=== PATIENT | female | born 1945 | race Caucasian/White ===

== ENCOUNTER 2019-06-13 10:56 | Outpatient (CLI) | payer MEDICARE, SELFPAY ==
--- NOTE | ~2019-06-13 | XR_ITS ---
XR chest 2V DATE: 06/13/2019 11:29 INDICATION: Left numbness. Left neck pain. TECHNIQUE: 2 views COMPARISON: 08/06/2015 2 view chest FINDINGS: There is bilateral hyperinflation. No pulmonary infiltrate or consolidation, pleural effusi on or pulmonary vascular congestion or pneumothorax. Normal heart size. No hilar or mediastinal enlargement. IMPRESSION: Bilateral hyperinflation; no active cardiopulmonary disease Reviewed, dictated and finalized at location A.
--- NOTE | ~2019-06-13 | XR_ITS ---
XR_CERV2-3V_CR DATE: 06/13/2019 11:29 INDICATION: Neck pain, left arm numbness. TECHNIQUE: AP, open-mouth, odontoid and lateral views COMPARISON: None FINDINGS: C1 and C2 are normally aligned and the odontoid process is intact. No fracture or dislocation or locked facet or prevertebral soft tissue swelling. There is moderately severe degenerative disease at C4-5 and moderately prominent degenerative disease at C5-6 and C6-7. There is uncovertebral joint spurring in the mid and lower cervical spine and evidence of degenerativ e change at the apophyseal joints. IMPRESSION: Cervical spondylosis Reviewed, dictated and finalized at Location A. Reviewed, dictated and finalized at location A. IMPRESSION: Cervical spondylosis
[2019-06-13 11:11] LABS: Hematocrit 42.3 % (35.0-42.0); Hemoglobin 14.6 g/dL (11.7-13.8); Mean Corpuscular HGB Conc 34.5 g/dL (32.0-36.0); Mean Corpuscular Hemoglobin 32.6 pg (27.0-31.0); Mean Corpuscular Volume 94.4 fL (78.0-102.0); Mean Platelet Volume 10.4 fl (9.2-11.8); Platelet Count Result 370 K/mm3 (150-420); Red Blood Count 4.48 M/mm3 (4.20-5.40); Red Cell Distribution Width 11.8 % (11.6-14.4); White Blood Count 6.3 K/mm3 (4.8-10.8)
[2019-06-13 11:12] LABS: Add Urine Microscopic? NO; Appearance Urine Clear (Clear); Bilirubin Urine Negative (Negative); Blood Urine Negative (Negative); Color Urine Yellow (Yellow); Glucose Urine UA Negative (Negative); Ketones Urine Negative (Negative); Leukocyte Esterase Ur Negative (Negative); Nitrate Urine Negative (Negative); Protein Urine Negative (Negative); Urobilinogen Urine 0.2 mg/dL (0.2-1.0); pH Urine 5.5 (5.0-8.0)
[2019-06-13 11:46] LABS: Alanine Aminotransferase 41 U/L (14-59); Alkaline Phosphatase 60 U/L (46-116); Anion Gap 10.7 mmol/L (7-16); Aspartate Amino Transferase 31 U/L (15-37); Bilirubin,Total 0.5 mg/dL (0.00-1.00); Blood Urea Nitrogen 14 mg/dL (7-18); Calcium 9.1 mg/dL (8.5-10.1); Carbon Dioxide 30 mmol/L (21-32); Chloride 102 mmol/L (98-108); Cholesterol 215 mg/dL (0-200); Estimated Glomerular Filt Rate > 60; Glucose 97 mg/dL (70-99); HDL Direct 85 mg/dL (40-60); LDL Cholesterol Calculated 116 mg/dL (<130); Osmolality Calculated 288 mOsm/kg (285-295); Potassium 3.7 mmol/L (3.5-5.1); Sodium 139 mmol/L (136-145); Thyroid Stimulating Hormone 1.57 uIU/mL (0.36-3.74); Total Protein 6.5 g/dL (6.4-8.2); Triglycerides 72 mg/dL (0-150)
[2019-06-13 12:41] LABS: Immature Granulocyte Percent A 0.5 % (0.0-0.0)
[2019-06-13 12:42] LABS: Neutrophils Percent Auto 60.2 % (50.0-70.0)
[2019-06-13 12:43] LABS: Basophils Absolute Auto 1.06 K/mm3 (0.00-0.10); Eosinophils Absolute Auto 0.12 K/mm3 (0.02-0.50); Eosinophils Percent Auto 1.9 % (1.0-6.0); Lymphocytes Absolute Auto 1.71 K/mm3 (1.10-4.50); Lymphocytes Percent Auto 27.3 % (18.0-42.0); Monocytes Absolute Auto 0.57 K/mm3 (0.10-0.90); Monocytes Percent Auto 9.1 % (2.0-11.0); Neutrophils Absolute Auto 3.8 K/mm3 (1.7-7.2); Platelet Estimate Adequate (Adequate)
== END 2019-06-13 10:57 | disposition home or self-care (01) ==
LOC: CHSLAB 10:58
PROVIDERS: PCP Internal Medicine; Visit Provider Internal Medicine
DX: E78.5 Hyperlipidemia, unspecified (principal); I10 Essential (primary) hypertension; R20.0 Anesthesia of skin; R07.9 Chest pain, unspecified
CPT/HCPCS: 36415; 71046; 72040; 80053; 80061; 81003; 84443; 85025

== ENCOUNTER 2019-10-28 01:04 | Emergency (ER) | payer MEDICARE, SELFPAY ==
--- NOTE | 2019-10-28 01:19 | ED.FEMALEGU ---
HPI - Female Genitourinary General Chief complaint: Unspecified Stated complaint: UTI Time Seen by Provider: 10/28/19 01:19 Source: patient Mode of arrival: ambulatory Limitations: no limitations History of Present Illness HPI Narrative: 74-year-old woman comes in today complaining of increasingly painful urination over the last 3 days, some mild low abdominal pain, mild left flank pain, and urgency and frequency. She states that she has had no fever, nausea, vomiting and no blood in her urine. She states she has had symptoms like this in the past and was treated for UTI. She denies vaginal discharge. MD elicited complaint: dysuria Onset (ago): day(s) (3) Location of symptoms: urethra Severity: moderate Quality of pain: sharp and burning Consistency: progressively worsening Vaginal discharge: none Vaginal bleeding: none Urinary symptoms: Dysuria, Urgency, Frequency and Flank Pain ( Mild left) Exacerbating factors: urination Relieving factors: none Associated symptoms: abdominal pain Treatment prior to arrival: none Patient : No Related Data Home Medications Medication Instructions Recorded Confirmed gentamicin-prednisolone [Pred-G] See Rx Instructions .ROUTE .COMPLEX 10/28/19 10/28/19 lisinopril-hydrochlorothiazide See Rx Instructions .ROUTE .COMPLEX 10/28/19 10/28/19 [Zestoretic] lorazepam [Ativan] See Rx Instructions .ROUTE .COMPLEX 10/28/19 10/28/19 montelukast [Singulair] See Rx Instructions .ROUTE .COMPLEX 10/28/19 10/28/19 pravastatin See Rx Instructions .ROUTE .COMPLEX 10/28/19 10/28/19 raloxifene [Evista] See Rx Instructions .ROUTE .COMPLEX 10/28/19 10/28/19 Allergies Allergy/AdvReac Type Severity Reaction Status Date / Time Sulfa (Sulfonamide Allergy Intermediate Blister Verified 10/28/19 01:25 Antibiotics) morphine AdvReac Intermediate felt like Uncoded 10/28/19 01:26 bugs crawling on her Review of Systems Constitutional: Constitutional: Reports chills and Denies fatigue Eyes: Eyes: Denies change in vision and Denies photophobia ENT: Denies dysphagia, Denies nasal congestion and Denies sore throat Cardiovascular: Cardiovascular: Denies chest pain Respiratory: Respiratory: Denies cough and Denies dyspnea Gastrointestinal: Gastrointestinal: Reports abdominal pain, Denies nausea and Denies vomiting Genitourinary: Genitourinary: Denies hematuria, Reports nocturia, Reports dysuria, Reports flank pain and Denies urinary incontinence Musculoskeletal: Musculoskeletal: Denies back pain, Denies arthralgias and Denies joint swelling Integumentary/Breasts: Skin/Breast: Denies pruritus, Denies erythema and Denies rash Neurologic: Denies vertigo, Denies dizziness and Denies syncope Hematologic/Lymphatic: Hematologic/Lymphatic: Denies easy bleeding and Denies easy bruising Allergic/Immunologic: Allergic/Immunologic: Denies lip swelling and Denies wheezing PMFSH Past Medical History Medical History Dyslipidemia Hypertension Insomnia Osteoporosis Surgical History Surgical History H/O: hysterectomy Social History Social History Smoking status: Never smoker Alcohol intake: never Substance use: never Living arrangements: with family Gender identity (if verbalized by the patient): Female Sexual Orientation (if Verbalized by the Patient): Straight or Heterosexual Exam Const: General: healthy appearing, no acute distress and alert; No ill appearing Orientation/consciousness: patient oriented x3 Limitations: no limitations HENMT: Mouth: Yes moist mucous membranes Throat: posterior oropharynx normal and uvula midline Eyes: Conjunctivae: conjunctivae normal Pupils: Equal, round and reactive pupils present EOM: EOMs intact bilaterally Resp: Effort & Inspection: normal respiratory effort
[2019-10-28 01:22] VITALS: BP 120/60; PULSE 76; RESP 16; TEMP 37
[2019-10-28 01:25] LABS: Add Urine Microscopic? YES; Appearance Urine Sl Cloudy (Clear); Bilirubin Urine Negative (Negative); Blood Urine 3+ (Negative); Color Urine Straw (Yellow); Glucose Urine UA Negative (Negative); Ketones Urine Negative (Negative); Leukocyte Esterase Ur 2+ (Negative); Nitrate Urine Negative (Negative); Protein Urine 1+ (Negative); Urobilinogen Urine 0.2 mg/dL (0.2-1.0)
[2019-10-28 01:30] LABS: Bacteria Urine 2+ /hpf; Mucus Urine None seen /lpf; Squamous Epithelial Cell Urine Few /hpf (Few); WBC Clumps Urine Present /hpf; WBC Urine >75 /hpf (0-3)
[2019-10-28] MEDS: PHENAZOPYRIDINE HCL 100 MG TABLET PO (01:39)
[2019-10-28] MEDS: CIPROFLOXACIN 500 MG TAB PO (01:39)
[2019-10-28 01:43] VITALS: BP 110/70; PULSE 66; RESP 18; TEMP 36.3
== END 2019-10-28 01:45 | disposition home or self-care (01) ==
PROVIDERS: Emergency Provider Emergency Medicine; PCP Internal Medicine
DX: N30.00 Acute cystitis without hematuria (principal); E78.5 Hyperlipidemia, unspecified; I10 Essential (primary) hypertension; M81.0 Age-related osteoporosis without current pathological fracture
CPT/HCPCS: 81001; 87077; 87086; 87088; 87186; 99283; 99284; A9270

== ENCOUNTER 2021-03-23 11:35 | Outpatient (CLI) | payer MEDICARE, SELFPAY | END 2021-03-23 11:36 | disposition home or self-care (01) | LOC: CHSLAB 11:37 | PROVIDERS: PCP Internal Medicine; Visit Provider Specialist | DX: D22.5 Melanocytic nevi of trunk (principal); C44.01 Basal cell carcinoma of skin of lip | CPT/HCPCS: 88305 ==

== ENCOUNTER 2022-03-15 08:15 | Outpatient (CLI) | payer MEDICARE, SELFPAY ==
--- NOTE | ~2022-03-15 | DEXA_ITS ---
Bone Density Report Name: SONG CASE Age: 76 Sex: Female Ethnicity: White Date of : 1945 Indication: postmenopausal; screening for osteoporosis; height loss; hysterectomy; Referring Provider: MOHINDER, CARLY Dorsey Study: Bone densitometry was performed. Exam Date: March 15, 2022 Accession number: [id number] Bone Density: Region BMD T-score Z-score Classification AP Spine(L1-L4) 0.742 -2.8 -0.4 Osteoporosis Femoral Neck (Left) 0.544 -2.7 -0.6 Osteoporosis Total Hip (Left) 0.646 -2.4 -0.6 Osteopenia Femoral Neck (Right) 0.553 -2.7 -0.6 Osteoporosis Total Hip (Right) 0.724 -1.8 0.0 Osteopenia Femoral Neck Mean 0.549 -2.7 -0.6 Osteoporosis Total Hip Mean 0.685 -2.1 -0.3 Osteopenia World Health Organization criteria for BMD impression classify patients as: Normal (T-score at or above -1.0), Osteopenia (T-score between -1.0 and -2.5), or Osteoporosis (T-score at or below -2.5). 10-year Fracture Risk: FRAX not reported because: Some T-score for Spine Total or Hip Total or Femoral Neck at or below -2.5 Treated for osteoporosis Clinical Information Provided by Patient: Is being treated for osteoporosis Has used the following medications: Evista (i.e. raloxifene), Fosamax (i.e. alendronate), Vitamin D, Calcium Has the following medical conditions: Hysterectomy Patient maximum height was 63 Menopause Age: 56 No regular weight bearing exercise Onset of menses at age 17 Number of children 2 Impression: The patient has osteoporosis, based on the Total Spine T-score. Discussion: It is important to ask patients whether they are taking their medications and to encourage continued and appropriate compliance with their osteoporosis therapies to reduce fracture risk. It is also important to review their risk factors and encourage appropriate calcium and vitamin D intakes, exercise, fall prevention and other lifestyle measures. Follow-Up: Consider a repeat BMD and Vertebral Fracture Assessment (VFA) exam in 2 years or sooner if medically necessary, to reassess this patient's status. Reported by: Dr. Cedric Altamirano on 03/15/2022 8:43:00 AM. Reviewed, dictated and finalized at location Brianda MOSES
== END 2022-03-15 08:16 | disposition home or self-care (01) ==
LOC: CHSIMG 08:17
PROVIDERS: PCP Internal Medicine; Visit Provider Obstetrics & Gynecology
DX: Z78.0 Asymptomatic menopausal state (principal)
CPT/HCPCS: 77080

== ENCOUNTER 2023-03-01 08:56 | Outpatient (CLI) | payer MEDICARE, SELFPAY ==
[2023-03-01 10:10] LABS: Cholesterol 231 mg/dL (0-200); HDL Direct 96 mg/dL (40-60); LDL Cholesterol Calculated 119 mg/dL (<130); Thyroid Stimulating Hormone 1.52 uIU/mL (0.36-3.74); Triglycerides 80 mg/dL (0-150)
== END 2023-03-01 08:57 | disposition home or self-care (01) ==
LOC: CHSLAB 09:01
PROVIDERS: PCP Internal Medicine; Visit Provider Internal Medicine
DX: E78.5 Hyperlipidemia, unspecified (principal)
CPT/HCPCS: 36415; 80061; 84443

== ENCOUNTER 2023-03-23 08:20 | Outpatient (RCR) | payer MEDICARE, SELFPAY ==
--- NOTE | 2023-03-23 09:44 | OPREHPOC ---
Outpatient Therapy Plan of Care This is a Multidisciplinary Plan of Care that may contain components documented by all disciplines (PT, OT, and ST.) PT Problem 1 PT Problem #1 Knowledge Deficit PT Goal 1 Goal 1. independent and compliant with HEP Target Visit 6 PT Problem 2 PT Problem #2 Pain PT Goal 1 Goal 1. decrease pain at worst in the lower back to 3/ 10 or less 2. decrease pain at worst in the neck to 3/10 or less Target Visit 12 PT Problem 3 PT Problem #3 Impaired Range of Motion PT Goal 1 Goal 1. improve lumbar active extension to 20 degrees 2. improve lumbar active sidebending to 20 degrees bilat 3. improve cervical sidebending to 30 degrees bilat 4. improve cervical rotation to 70 degrees or better bilat Target Visit 12 PT Problem 4 PT Problem #4 Impaired Strength PT Goal 1 Goal 1. improve bilateral hip strength to 4+/5 or better 2. improve bilateral shoulder and UE strength to 4 +/5 or better Target Visit 12 PT Problem 5 PT Problem #5 Impaired Functional Mobil PT Goal 1 Goal 1. oswestry to display less than 20% functional deficits 2. patient to squat and lift 20lbs from floor to waist with no increased pain/symptoms 3. patient to tolerate vacuuming 1 room a day at home. 4. patient to get up from sitting in chair without UE assist Target Visit 12
--- NOTE | 2023-03-23 09:44 | PTOPEVAL1 ---
Assessment and note entered by JT File, PT Evaluation Information Assessment Status Evaluation Diagnosis lower back pain, neck pain Onset 03/20/23 Subjective Information patient reports she injured her back when lifting a case of water many years ago. she reports she has always had some back pain since then that waxes and wanes in severity. she reports she tried therapy back in 2020, but stopped due COVID being so bad at the time. she reports now the pain has gravitated to the neck and shoulders as well. she reports she avoids vacuuming due to the pain it causes the next few days. she reports she also avoids bending to lift any objects. she reports she also is unable to get up from sitting on a soft surface. patient reports she is tight first thing in the morning and then loosens up as she moves. Reported Pain Level Pain Score 5,5: Self Report Assessment PT Clinical Summary mrs. cuevas is a 77 yo woman who presents to skilled PT services for evaluation and treatment of neck and back pain. she presents today with signs and symptoms indicative of DDD of the cervical and lumbar spines. she displays decreased rom in the lumbar and cervical spines, weakness of the hips and UE's, and deficits in posture/ambulation. she is limited in performing home activities due to her pain and fear or pain. she would benefit from continued skilled PT to address her objective/ functional deficits to return to her prior level functional activities/quality of life. Plan of Care Interventions Electrical Stimulation,Gait Training,Hot Pack/Cold Pack,Manual Therapy,Mechanical Traction,Neuro Re- education,Patient/Caregiver Educati,Therapeutic Activities,Therapeutic Exercise PT Services Indicated Yes Treatment Frequency and 3x weekly for 12 visits Duration These treatments will address the objective and functional deficits as defined above. The patient will be advanced safely and appropriately in order for the patient to progress towards his/her prior level of function. Additional exercises will be introduced and as well as a comprehensive home exercise program upon discharge, if needed, ?to ensure carryover of functional gains achieved in the clinic. This treatment plan has been reviewed and agreement upon by the patient.
--- NOTE | 2023-04-21 10:45 | PCPTNOTE ---
patient cancelled therapy today due to having stomach issues.
--- NOTE | 2023-04-24 08:55 | PCPTNOTE ---
Mrs. Meneses cancelled her appointment on this date due to inclement weather.
--- NOTE | 2023-05-01 11:43 | PTOPPROG ---
Assessment and note entered by Monty Dolan Evaluation Information Assessment Status Progress Diagnosis lower back pain, neck pain Onset 03/20/24 Subjective Information Pt. reports she is doing better. She reports neck is longer painful. She still gets occasional low back pain with bending over the basin at home. She reports that she is able to stand longer with less intense pain. Assessment PT Clinical Summary Mrs. Meneses has attended a total of 10 treatment sessions. Treatment thus far has focused on core stability, cervical mobility, l.e. flexiblity and l.e. strength. While she demonstrates improvement in reports of pain, she continues to present with mild weakness and cervical mobility deficits. At this time continue with remaining 2 sessions on pt. POC focusing on remaining strength and mobility deficits. Plan of Care Interventions Electrical Stimulation,Hot Pack/Cold Pack,Manual Therapy,Neuro Re-education,Therapeutic Activities, Therapeutic Exercise PT Services Indicated Yes Treatment Frequency and Continue with 2 remaining sessions focusing on Duration core stability, cervical mobility and l.e. strength These treatments will address the objective and functional deficits as defined above. The patient will be advanced safely and appropriately in order for the patient to progress towards his/her prior level of function. Additional exercises will be introduced and as well as a comprehensive home exercise program upon discharge, if needed, ?to ensure carryover of functional gains achieved in the clinic. This treatment plan has been reviewed and agreement upon by the patient.
--- NOTE | 2023-05-05 10:40 | OPREHPOC ---
Outpatient Therapy Plan of Care This is a Multidisciplinary Plan of Care that may contain components documented by all disciplines (PT, OT, and ST.) PT Problem 1 PT Problem #1 Knowledge Deficit PT Goal 1 Goal 1. independent and compliant with HEP Target Visit 6 Progress Met PT Problem 2 PT Problem #2 Pain PT Goal 1 Goal 1. decrease pain at worst in the lower back to 3/ 10 or less 2. decrease pain at worst in the neck to 3/10 or less Target Visit 12 Progress Met PT Problem 3 PT Problem #3 Impaired Range of Motion PT Goal 1 Goal 1. improve lumbar active extension to 20 degrees 2. improve lumbar active sidebending to 20 degrees bilat 3. improve cervical sidebending to 30 degrees bilat 4. improve cervical rotation to 70 degrees or better bilat Target Visit 12 Progress Partially Met PT Problem 4 PT Problem #4 Impaired Strength PT Goal 1 Goal 1. improve bilateral hip strength to 4+/5 or better 2. improve bilateral shoulder and UE strength to 4 +/5 or better Target Visit 12 Progress Partially Met PT Problem 5 PT Problem #5 Impaired Functional Mobil PT Goal 1 Goal 1. oswestry to display less than 20% functional deficits 2. patient to squat and lift 20lbs from floor to waist with no increased pain/symptoms 3. patient to tolerate vacuuming 1 room a day at home. 4. patient to get up from sitting in chair without UE assist Target Visit 12 Progress Not Met Comment unable to vacuum
--- NOTE | 2023-05-05 10:40 | PTOPDC ---
Assessment and note entered by Aaliyah Arrieta DPT Evaluation Information Assessment Status Discharge Diagnosis lower back pain, neck pain Onset 03/20/24 Subjective Information Patient reports she is graduating today. She reports she has learned what she can and can't do and is able to avoid painful activities. She reports she is independent with HEP at this time. Reported Pain Level Pain Score 3,3: Self Report Assessment PT Clinical Summary Mrs. Meneses has attended 12 visits of skilled PT. She demonstrates improved lumbar and cervical ROM as well as improved LE and UE strength. She reports significant decrease in cervical and low back pain since start of PT. She is still not able to vacuum but reports lifting for house hold tasks has improved. She is independent with HEP and is appropriate for DC at this time. Plan of Care PT Services Indicated No
== END 2023-05-05 14:14 | disposition home or self-care (01) ==
LOC: CHSPT 08:20
PROVIDERS: PCP Internal Medicine; Visit Provider Internal Medicine
DX: M54.50 Low back pain, unspecified (principal); M47.9 Spondylosis, unspecified
CPT/HCPCS: 97012; 97014; 97110; 97112; 97150; 97161; G0283

== ENCOUNTER 2024-11-29 07:31 | Outpatient (CLI) | payer MEDICARE, SELFPAY ==
--- NOTE | ~2024-11-29 | DEXA_ITS ---
Bone Density Report Name: SONG CASE Age: 79 Sex: Female Ethnicity: White Date of : 1945 Indication: postmenopausal osteoporosis; monitoring treatment; hysterectomy; Referring Provider: Maik Tobar Study: Bone densitometry was performed. Exam Date: November 29, 2024 Accession number: [id number] Bone Density: Region BMD T-score Z-score Classification AP Spine(L1-L4) 0.760 -2.6 0.0 Osteoporosis Femoral Neck (Left) 0.526 -2.9 -0.7 Osteoporosis Total Hip (Left) 0.745 -1.6 0.3 Osteopenia Femoral Neck (Right) 0.561 -2.6 -0.4 Osteoporosis Total Hip (Right) 0.791 -1.2 0.7 Osteopenia Femoral Neck Mean 0.544 -2.8 -0.5 Osteoporosis Total Hip Mean 0.768 -1.4 0.5 Osteopenia World Health Organization criteria for BMD impression classify patients as: Normal (T-score at or above -1.0), Osteopenia (T-score between -1.0 and -2.5), or Osteoporosis (T-score at or below -2.5). 10-year Fracture Risk: FRAX not reported because: Some T-score for Spine Total or Hip Total or Femoral Neck at or below -2.5 Treated for osteoporosis Previous Exams: Region Exam Age BMD T-score BMD Change BMD Change Date g/cm2 vs Baseline vs Previous AP Spine (L1-L4) 11/29/2024 79 0.760 -2.6 -0.131 (-14.7% 0.018 (2.5%)# 03/15/2022 76 0.742 -2.8 -0.149 (-16.7% -0.009 (-1.2%) 10/28/2016 71 0.751 -2.7 -0.140 (-15.7% -0.110 (-12.8% 07/24/2013 67 0.861 -1.7 -0.030 (-3.3%) 0.039 (4.7%)* 07/04/2011 65 0.823 -2.0 -0.068 (-7.7%) -0.068 (-7.7%) 10/24/2008 63 0.891 -1.4 Total Hip(Left) 11/29/2024 79 0.745 -1.6 -0.059 (-7.3%) 0.099 (15.4%)# 03/15/2022 76 0.646 -2.4 -0.158 (-19.7% -0.061 (-8.7%) 02/06/2019 73 0.707 -1.9 -0.097 (-12.1% 0.024 (3.6%) 10/28/2016 71 0.682 -2.1 -0.121 (-15.1% -0.052 (-7.1%) 07/24/2013 67 0.735 -1.7 -0.069 (-8.6%) 0.015 (2.1%) 07/04/2011 65 0.720 -1.8 -0.084 (-10.4% -0.084 (-10.4% 10/24/2008 63 0.804 -1.1 *Denotes significance at 95% confidence level, LSC for AP Spine = 0.022 g/cm2, LSC for Total Hip = 0.027 g/cm2 # Denotes dissimilar scan types or analysis methods Clinical Information Provided by Patient: Is being treated for osteoporosis Has used the following medications: Evista (i.e. raloxifene), Vitamin D Has the following medical conditions: Hysterectomy Patient maximum height was 63 Menopause Age: 56 No regular weight bearing exercise Onset of menses at age 17 Number of children 2 Impression: The patient has osteoporosis, based on the Left Femoral Neck T-score. No significant bone loss was observed. Discussion: PATIENT UNDER TREATMENT WITH NO SIGNIFICANT BMD LOSS SINCE LAST EXAM. In an untreated patient, BMD typically declines with age. A lack of decline or gain is usually a sign that treatment is efficacious and fracture risk is reduced. It is important to ask patients whether they are taking their medications and to encourage continued and appropriate compliance with their osteoporosis therapies to reduce fracture risk. It is also important to review their risk factors and encourage appropriate calcium and vitamin D intakes, exercise, fall prevention and other lifestyle measures. Follow-Up: Consider a repeat BMD and Vertebral Fracture Assessment (VFA) exam in 2 years or sooner if medically necessary, to reassess this patient's status. Reported by: MOSES on 11/29/2024 7:50:00 AM. Reviewed, dictated and finalized at location A.
== END 2024-11-29 07:32 | disposition home or self-care (01) ==
LOC: CHSIMG 07:32
PROVIDERS: PCP Internal Medicine; Visit Provider Internal Medicine
DX: M81.0 Age-related osteoporosis without current pathological fracture (principal); M85.852 Other specified disorders of bone density and structure, left thigh; M85.851 Other specified disorders of bone density and structure, right thigh
CPT/HCPCS: 77080

== ENCOUNTER 2024-12-09 07:59 | Outpatient (CLI) | payer MEDICARE, SELFPAY ==
--- OUTSIDE RECORDS SUMMARY | 2024-12-09 08:18 | XMS_ITS | Clinical Summary ---
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 Name Role Phone Maik Tobar MD Primary Care Provider [phone] 14-2023 Family History Medical History Relation Comments Breast Cancer Maternal Grandmother Relation Status Comments Maternal Grandmother Social History Tobacco Use Types Packs/Day Years Used Date Smoking Tobacco: Never Assessed Comments Unknown Sex and Gender Information Value Date Recorded Sex Assigned at Not on file Legal Sex Female 8:38 PM CDT Gender Identity Not on file Sexual Orientation Not on file Plan of Treatment Health Maintenance Due Date Last Done Comments Hepatitis C 1963 Annual Medicare Wellness Visit 10/06/2011 Dexa Scan (General) 10/06/2011 RSV Immunization or 60+ Years (1 - 1-dose 75+ series) 2021 COVID-19 Vaccine ( season) 2024 12/31/2022, 12/21/2021, 07/16/2021, Additional history exists DTaP, Tdap and Td Vaccines (3 - Td or Tdap) 08/27/2030 08/27/2020, 10/09/2012 Zoster Vaccines Completed 05/17/2019, 12/2018, 02/17/2012 Pneumococcal Vaccine: 50+ Years Completed 05/22/2022, 01/25/2018, 11/02/2015 Meningococcal B Vaccine Aged Out No l onger eligible based on patient's age to complete this topic Meningococcal Vaccine Aged Out No aida [place] eligible based on patient's age to complete this topic RSV Immunizations Under 20 Months Aged Out No longer eligible based on patient's age to complete this topic Insurance [employer] Care Teams Propulsion Generator Repairer Relationship Specialty Start Date End Date Maki Tobar MD [address] [place] [address] PCP - General INTERNAL MEDICINE 01/29/18
--- OUTSIDE RECORDS SUMMARY | 2024-12-09 08:18 | XMS_ITS | Clinical Summary ---
Author Organization [facility] Address [address] [place] [address] Care Team Providers Care Momd Teacher Name Role Phone Maik Tobar MD Primary Care Provider Allergies Active Allergy Reactions Criticality Noted Date Comments Codeine Itching Low 05/17/2011 Sulfa (Sulfonamide Antibiotics) Itching Low 05/04 Medications lisinopril-hydro CHLOROthiazide (ZESTORETIC) 10-12.5 mg per tablet Take 1 tablet by mouth daily Active montelukast (SINGULAIR) 10 mg tablet Take 1 tablet (10 mg total) by mouth daily as needed Active LORazepam (ATIVAN) 1 mg tablet Take 1 tablet (1 mg total) by mouth nightly Active amLODIPine (NORVASC) 5 mg tablet TAKE 1.5 TABLET (7.5 MG) BY ORAL ROUTE ONCE DAILY 10/23/2023 Active pravastatin (PRAVACHOL) 10 mg tablet Take 1 tablet (10 mg total) by mouth daily 11/02/2023 Active raloxifene (EVISTA) 60 mg tablet Take 1 tablet (60 mg total) by mouth daily Active cetirizine (ZyrTEC) 5 mg tabletIndication s:Seasonal allergic rhinitis due to pollen Take 1 tablet (5 mg total) by mouth daily 30 tablet 11 01/15/2024 01/15/20 25 Active Imvexxy Maintenance Pack 10 mcg insert vaginal insert Insert 10 mcg into the vagina 2 (two) times a week 26 each 3 08/05/2024 Active Active Problems Problem Noted Date Diagnosed Date Other osteoporosis without current pathological fracture 08/05/2024 Seasonal allergic rhinitis due to pollen 024 Assessment & Plan (01/15/2024 2:04 PM CDT): 50 ounces of caffeine free and soda free fluid daily Cetirizine 5 mg daily for at least one month, consider Nasal saline spray (Simply saline, [employer], [place], [place]) 2 second sprays or 2 squeezes into each nostril while looking down over the sink, do not need to sniff in. Followed by Flonase 2 sprays into each nostril while looking down over the sink, do not sniff in or blow nose after use for at least 30 minutes daily Hearing test Tinnitus of right ear 01/15/2024 Assessment & Plan (01/15/2024 2:04 PM CDT): Hearing test Immune deficiency disorder 12/17/2023 Surgical History Surgery Date Site/Laterality Comments OOPHORECTOMY 01/05/2010 Bilateral SALPINGECTOMY 01/05/2010 Bilateral HYSTERECTOMY 01/05/2010 total abdominnal hyst Medical History Medical History Date Comments High cholesterol Hypertension Diverticulitis Hemorrhoids Family History Medical History Relation Name Comments Skin cancer Brother Heart disease Father Hypertension Father Breast cancer Maternal Grandmother Colon cancer Mother Hypertension Mother Relation Name Status Comments Brother Father Maternal Grandmother Mother Social History Tobacco Use Types Packs/Day Years Used Date Smoking Tobacco: Never Smokeless Tobacco: Never Tobacco Cessation:Counseling Given: Not Answered Comments No Sex and Gender Information Value Date Recorded Sex Assigned at Not on file 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 Gender Identity Not on file Sexual Orientation Not on file Obstetrics History Para Term AB IAB SAB Ectopic Multiple Livin g Live Births 2 2 2 2 2 Date Outcome GA Total Labor Labor/2nd/3rd Weight Sex Type Anes PTL Jossie A1 A5 Name Clin 1 Term M Vag-S pont Living 3 Term F Vag-S pont Living Last Filed Vital Signs Vital Sign Reading Time Taken Comments Blood Pressure 144/82 08/05/2024 8:30 AM CDT Pulse - - Temperature - - Respiratory Rate - - Oxygen Saturation - - Inhaled Oxygen Concentration - - Weight 51.7 kg (114 lb) 08/05/2024 8:30 AM CDT Height 160 cm (5' 3) 08/05/2024 8:30 AM CDT Body Mass Index 20.19 08/05/2024 8:30 AM CDT Plan of Treatment Health Maintenance Due Date Last Done Comments Depression Screening 1945 Fall Risk Assessment 1945 Hepatitis C Screening 1945 Hepatitis B Screening 1963 Covid-19 Vaccine (2023- 5 season) 2024 11/13/2023, 12/31/2022, 12/21/2021, Additional history exists Osteoporosis Screening-Bone Density Scan 03/15/2024 03/15/2022 Influenza Vaccine (#1) 2024 , 01/26/2023, 01/14/2022, Additional history exists Well Visit 65+ 08/05/2025 08/05/2024 DTaP/Tdap/Td Vaccine (3 - Td or Tdap) 08/27/2030 08/27/2020, 10/09/2012 Zoster Vaccine Completed 05/17/2019, 12/2018, 02/17/2012 Pneumococcal vaccine 65+ Completed 023, 01/25/2018, 11/02/2015 Procedures Procedure Name Priority Date/Time Associated Diagnosis Comments DEXA AXIAL SKELETON BONE DENSITY 1 OR MORE SITES Schedule Routine, Read Routine (OP Routine) 03/15/2022 10:16 AM CHILD CARE SITTER from Last 3 Months or Most Recently Relevant to Health Maintenance Results * Dexa Axial Skeleton Bone Density 1 or 2 Site (03/15/2022 10:16 AM CHILD CARE SITTER) Anatomical Region Laterality Modality Body N/A Radiographic Rona ging us Historical Provider MD [facility]KE DXA PROCEDURES Final Result from Last 3 Months or Most Recently Relevant to Health Maintenance Insurance [employer] MEDICARE Care Teams Momd Teacher Relationship Specialty Start Date End Date Maik Tobar MD PCP - General Internal Medicine 11/21/23
--- OUTSIDE RECORDS SUMMARY | 2024-12-09 08:18 | XMS_ITS | Clinical Summary ---
Author Organization [facility] Address [address] [place] [address] Phone Care Team Providers Care Lead Retail Sales Associate Name Role Phone Maik Tobar MD Primary Care Provider [phone] Allergies Active Allergy Reactions Criticality Noted Date Comments Codeine Unknown 05/17/2011 Sulfa (Sulfonamide Antibiotics) Unknown 05/04 Medications aspirin (RAY) 81 mg Oral TabIndications:A bdominal pain, generalized,Loss of weight Take by mouth. Active montelukast (SINGULAIR) 10 mg Oral tabletIndication s:Abdominal pain, generalized,Loss of weight Take 10 mg by mouth daily at bedtime. Active lisinopril-hydro chlorothiazide (ZESTORETIC) 10-12.5 mg Oral tabletIndication s:Abdominal pain, generalized,Loss of weight Take 1 Tab by mouth daily. Active ERGOCALCIFEROL, VITAMIN D2, (VITAMIN D ORAL) Take by mouth. Active LORazepam (ATIVAN) 1 mg tablet Take 1 mg by mouth every 6 hours as needed for Anxiety. 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 Gender Identity Not on file Sexual Orientation Not on file Last Filed Vital Signs Vital Sign Reading Time Taken Comments Blood Pressure 122/62 09/16/2016 11:11 AM CDT Pulse 68 09/16/2016 11:11 AM CDT Temperature 36.2 C (97.1 F) 01/15/2016 8:32 AM CDT Respiratory Rate 16 01/15/2016 8:50 AM CDT Oxygen Saturation 99% 01/15/2016 8:50 AM CDT Inhaled Oxygen Concentration - - Weight 49 kg (108 lb) 09/16/2016 11:11 AM CDT Height 160 cm (5' 3) 09/16/2016 11:11 AM CDT Body Mass Index 19.13 09/16/2016 11:11 AM CDT Plan of Treatment Health Maintenance Due Date Last Done Comments DTAP/TDAP/TD VACCINES (1 - Tdap) 1965 PNEUMOCOCCAL VACCINE 50+ YEA RS (1 of 1 - PCV) 1996 ZOSTER VACCINE (1 of 2) 1996 OSTEOPOROSIS SCREENING 10/06/2011 COLORECTAL SCREENING 01/14/2021 01/15/2016, 12/30/19 11 RSV VACCINE (60+ or ) (1 - 1-dose 75+ series) 2021 INFLUENZA VACCINE (#1) 2024 Procedures Procedure Name Priority Date/Time Associated Diagnosis Comments ENDOSCOPY, COLON, SCREENING Routine 12/29/2010 from Last 3 Months or Most Recently Relevant to Health Maintenance Results * (ABNORMAL) ENDOSCOPY, COLON, SCREENING (12/29/2010) Genaro Villa MD GI PROCEDURE ORDERABLES Final R esult EXTERNAL LAB from Last 3 Months or Most Recently Relevant to Health Maintenance Insurance [facility] [id number] Advance Directives For more information, please contact: [phone] * Full Code (Latest Code Status on File) Date Activated Date Inactivated Comments 01/15/2016 7:51 AM 01/15/2016 11:23 AM Care Teams Lead Retail Sales Associate Relationship Specialty Start Date End Date Maik Tobar MD [address] [place] [address] PCP - General 03/24/15
[2024-12-09 08:38] LABS: Add Urine Microscopic? YES; Appearance Urine Clear (Clear); Glucose Urine UA Negative (Negative); Leukocyte Esterase Ur Trace (Negative); Nitrate Urine Negative (Negative); Specific Grav Ur 1.010 (1.010-1.020)
[2024-12-09 08:51] LABS: Alanine Aminotransferase 13 U/L (6-35); Albumin Level 4.0 g/dL (3.5-5.1); Alkaline Phosphatase 48 U/L (38-126); Anion Gap 5 mmol/L (4-12); Aspartate Amino Transferase 24 U/L (14-36); Bilirubin,Total 0.4 mg/dL (0.2-1.3); Blood Urea Nitrogen 19 mg/dL (7-17); Calcium 9.8 mg/dL (8.4-10.2); Carbon Dioxide 28 mmol/L (22-30); Chloride 106 mmol/L (98-107); Estimated Glomerular Filt Rate > 60; Glucose 94 mg/dL (65-110); Osmolality Calculated 290 mOsm/kg (285-295); Potassium 4.4 mmol/L (3.4-5.0); Sodium 139 mmol/L (137-145); Total Protein 6.2 g/dL (6.3-8.2)
[2024-12-09 09:21] LABS: Thyroid Stimulating Hormone 1.190 uIU/mL (0.465-4.680)
[2024-12-09 13:19] LABS: Cholesterol 189 mg/dL (0-200); HDL Direct 92 mg/dL; Triglycerides 64 mg/dL (<150)
== END 2024-12-09 08:00 | disposition home or self-care (01) ==
LOC: CHSLAB 08:01
PROVIDERS: PCP Internal Medicine; Visit Provider Internal Medicine
DX: E78.5 Hyperlipidemia, unspecified (principal); I10 Essential (primary) hypertension
CPT/HCPCS: 36415; 80053; 80061; 81001; 84443